=== PATIENT | female | born 1970 | race African-American/Black ===

== ENCOUNTER → 2017-05-10 | Outpatient (CLI) | payer MEDICARE ==
[~2017-05-10] MED LIST: AMOX250C PO; CLOB10TA PO; HYDR-2762 PO; LINA145C PO; MULT-55 PO
--- NOTE | 2017-05-10 17:09 | RAD ---
Pelvic ultrasound, 05/10/2017: History: Ovarian cyst Transabdominal and transvaginal scans were obtained. The uterus is enlarged measuring 11.2 x 6.7 x 8.2 cm. The uterine echo pattern is heterogeneous. There are several uterine masses seen. These include a 4.0 cm hypoechoic mass located posteriorly and a 3.9 cm slightly hypoechoic, heterogeneous mass on the right. The central uterine echo complex is distorted and not clearly defined. The right ovary was not visualized. The left ovary contains a 2.2 cm cyst. There is a small amount of free fluid in the cul-de-sac. IMPRESSION: 1. Enlarged, heterogeneous uterus most compatible with uterine fibroids. 2. Small left ovarian cyst. 3. Trace amount of free fluid in the pelvis. Abdominal ultrasound, 05/10/2017: History: Right flank pain The gallbladder is surgically absent. No hepatic mass or bile duct dilatation is seen. The visualized portions of the pancreas and spleen are unremarkable. There is no evidence of a renal mass. There is a mildly prominent extrarenal pelvis on the right. No true hydronephrosis is seen. The abdominal aorta and inferior vena cava are unremarkable. No free fluid is evident in the abdomen. IMPRESSION: 1. Status post cholecystectomy. 2. No acute abdominal abnormality is detected.
== END | disposition home or self-care (01) ==
LOC: US 14:13
PROVIDERS: ATTEND Family Medicine
DX: N83.202 Unspecified ovarian cyst, left side (principal); N85.2 Hypertrophy of uterus; Z90.49 Acquired absence of other specified parts of digestive tract
CPT/HCPCS: 76700; 76830; 76856